=== PATIENT | female | born 1980 | race Caucasian/White ===

== ENCOUNTER 2017-02-15 00:35 | Emergency (ER) | payer BC, OTHER ==
[~2017-02-15] VITALS: Ht 167.6 cm; Wt 68.0 kg
[~2017-02-15 00:35] MED LIST: NORCO 5-325 TA1 EACH PO
[2017-02-15 00:39] VITALS: BP 126/83
[2017-02-15] MEDS ORDERED: TRAMADOL 50 MG50 MG PO (01:33)
== END 2017-02-15 01:55 | disposition home or self-care (01) ==
LOC: ER 00:35
DX: S92.511A Displaced fracture of proximal phalanx of right lesser toe(s), initial encounter for closed fracture (principal); F10.99 Alcohol use, unspecified with unspecified alcohol-induced disorder; W20.8XXA Other cause of strike by thrown, projected or falling object, initial encounter; Y93.89 Activity, other specified; Y92.89 Other specified places as the place of occurrence of the external cause; Y99.0 Civilian activity done for income or pay